=== PATIENT | female | born 1995 | race Caucasian/White ===

== ENCOUNTER 2021-09-17 07:36 | Day surgery (SDC) | payer MEDICAID ==
[~2021-09-17] VITALS: Ht 160 cm; Wt 59.1 kg
[2021-09-17 07:57] VITALS: BP 100/60
[2021-09-17] MEDS ORDERED: LEVO75TA7 PO (08:13)
[2021-09-17] MEDS ORDERED: ONDA-104 (08:13)
[2021-09-17] MEDS ORDERED: CLON-369 PO (08:13)
[2021-09-17] MEDS ORDERED: FAMO40TA8 PO (08:13)
[2021-09-17] MEDS ORDERED: AZEL137S4 BOTHNARES ×2 (08:13→08:19)
[2021-09-17] MEDS ORDERED: EPIN0.3A3 (08:19)
[2021-09-17] MEDS ORDERED: CARB1TAB41 PO (08:19)
[2021-09-17] MEDS ORDERED: CHOL20002 (08:19)
[2021-09-17] MEDS ORDERED: ESOM40CA54 (08:19)
[2021-09-17] MEDS ORDERED: HYDR-3686 PO (08:20)
[2021-09-17] MEDS ORDERED: ASCO500C17 PO (08:21)
[2021-09-17] MEDS ORDERED: LORA10TA7 PO (08:22)
[2021-09-17] MEDS ORDERED: LIDOCAINE PO (08:24)
[2021-09-17] MEDS ORDERED: VITA-268 PO (08:24)
[2021-09-17] MEDS ORDERED: CANN100S PO (08:25)
[2021-09-17] MEDS ORDERED: DOCU-148 PO (08:26)
[2021-09-17] MEDS ORDERED: LACT1CAP55 PO (08:26)
[2021-09-17] MEDS ORDERED: ATRIN INH (08:27)
[2021-09-17] MEDS ORDERED: LEVA0.6319 NEB (08:28)
[2021-09-17] MEDS ORDERED: LEVA15HF4 INH (08:31)
[2021-09-17] MEDS ORDERED: LIDOcaine Viscous 15ml cup ONE (08:31)
[2021-09-17] MEDS ORDERED: fentaNYL/PF 50MCG/1 ML 2ML syringe ONE ×3 (08:31→10:08)
[2021-09-17] MEDS ORDERED: diphenhydrAMINE 50 mg/ml inj ONE ×2 (08:31→09:51)
[2021-09-17] MEDS ORDERED: MIDAZolam 1 MG/ML 5ML VIAL ONE ×2 (08:31→09:51)
[2021-09-17 10:25] VITALS: BP 127/65
[2021-09-17 10:35] VITALS: BP 106/75
[2021-09-17 10:45] VITALS: BP 130/75
[2021-09-17 10:55] VITALS: BP 121/81
== END 2021-09-17 11:30 | disposition home or self-care (01) ==
LOC: GI LAB 07:36
PROVIDERS: ATTEND Internal Medicine Gastroenterology
DX: K92.1 Melena (principal); F45.8 Other somatoform disorders; K64.8 Other hemorrhoids; K21.9 Gastro-esophageal reflux disease without esophagitis; J45.909 Unspecified asthma, uncomplicated; Z79.899 Other long term (current) drug therapy
CPT/HCPCS: 43239; 45378; 99152; 99153; J1200; J2250; J3010; J7040; Z7512; A4620